=== PATIENT | male | born 1985 | race Hispanic/Latino ===

== ENCOUNTER 2017-07-04 15:03 | Emergency (ER) | payer SELFPAY ==
[2017-07-04] MEDS ORDERED: TETANUS & DIPHTHERIA TOX,ADULT 0.5 ML VIAL ONE (15:36)
[2017-07-04 15:50] LABS: Absolute Lymphocytes (CBC) 2.2 K/uL (0.7-4.9); Absolute Monocytes 0.5 K/uL (0.1-1.3); Absolute Neutrophil 7.4 K/uL (1.8-8.0); Basophils % 0.3 % (0-1.3); Eosinophils % 1.2 % (0-4.4); Hematocrit 49.4 % (39.6-49.0); Lymphocytes % 21.2 % (15.3-44.8); MCH 29.8 pg (27.0-35.0); MCV 88.7 fL (80-100); MPV 8.7 fL (7.6-11.3); Monocytes % 4.9 % (3.3-12.3); RBC Red Blood Cell Count 5.57 M/uL (4.33-5.43)
--- NOTE | 2017-07-04 16:04 | RAD REPORT ---
EXAM DESCRIPTION: CT - Head Brain Wo Cont - 07/04/2017 3:51 pm CLINICAL HISTORY: Seizure COMPARISON: None. TECHNIQUE: All CT scans are performed using dose optimization technique as appropriate and may inclu de automated exposure control or mA/KV adjustment according to patient size. FINDINGS: No intracranial hemorrhage, hydrocephalus or extra-axial fluid collection.No areas of brai n edema or evidence of midline shift. Mild mucoperiosteal thickening affects the right maxillary antrum. The paranasal sinuses and mastoids are otherwise clear. The calvarium is intact. IMPRESSION: No acute intracranial abnormality.
[2017-07-04 16:27] LABS: Barbiturates NEGATIVE; Benzodiazepines NEGATIVE; Cocaine NEGATIVE; METHAMPHETAM NEGATIVE (NEGATIVE); Opiates NEGATIVE; Phencyclidine NEGATIVE; THC Cannibis POSITIVE
[2017-07-04 16:30] LABS: Potassium 4.2 mEq/L (3.6-5.0)
[2017-07-04 16:34] LABS: Albumin 4.4 g/dL (3.2-5.5); Bilirubin Total 0.7 mg/dL (0.3-1.2); Protein, Total 8.1 g/dL (6.0-8.3)
[2017-07-04 16:54] LABS: Urine Blood 2+ (NEG); Urine Glucose NEGATIVE (NEG); Urine Protein 2+ (NEG); Urine Specific Gravity 1.025 (1.005-1.030)
--- NOTE | 2017-07-04 17:30 | ER ---
Nurse's Notes [facility] Name: Rai Easton Age: 32 yrs Sex: Male : 1985 Arrival Date: 07/04/2017 Time: 15:06 Bed 28 Private MD: Diagnosis: Syncope and collapse Presentation: 07/04 15:08 Presenting complaint: EMS states: Pt. arrived by EMS, c/o of seizure. Pt. was [place] parking [place] apartment [place] having a seizure. Per EMS pt. has a pmhx of having a seizure x 6 years ago; however, has not had one since then. Does not take seizure medications. Pt. appeared postictal upon arrival of EMS; however, was A\T\O x 4 upon arrival to ED. Noted abrasion/lac to left side of face. FSBG 128. Transition of care: patient was not received from another setting of care. Onset of symptoms was July 04, 2017. Risk Assessment: Do you want to hurt yourself or someone else? Patient reports no desire to harm self or others. Initial Sepsis Screen: Does the patient meet any 2 criteria? HR > 90 bpm. Does the patient have a suspected source of infection? No. Patient's initial sepsis screen is negative. Care prior to arrival: Placed on backboard. Medication(s) given: IV initiated. 20 GA, in the left antecubital area, Glucose check: 128. 15:08 Method Of Arrival: EMS: [facility] rv 15:08 Acuity: DINH 3 rv Triage Assessment: 15:14 General: Appears in no apparent distress. well developed, well nourished, Behavior is rv calm, cooperative. Pain: Complains of pain in face. EENT: No deficits noted. Neuro: No deficits noted. Level of Consciousness is alert, obeys commands, Oriented to person, place, time, situation. Respiratory: Airway is patent Respiratory effort is even, unlabored, Respiratory pattern is regular, symmetrical. GI: No signs and/or symptoms were reported involving the gastrointestinal system. : No signs and/or symptoms were reported regarding the genitourinary system. Derm: Skin is pink, warm \T\ dry. Injury Description: Abrasion sustained to face Laceration sustained to face. Historical: - Allergies: 15:14 No Known Allergies; rv - Home Meds: 15:14 None [Active]; rv - PMHx: 15:14 Asthma; rv - Immunization history:: Last tetanus immunization: unknown, Pneumococcal vaccine is not up to date, Flu vaccine is not up to date. - Social history:: Smoking status: Patient uses tobacco products, denies chronic smoking, but will smoke occasionally. - Ebola Screening: : Patient negative for fever greater than or equal to 101.5 degrees Fahrenheit, and additional compatible Ebola Virus Disease symptoms. Screenin:19 Abuse screen: Denies threats or abuse. Nutritional screening: No deficits noted. rv Tuberculosis screening: No symptoms or risk factors identified. Fall Risk Fall in past 12 months (25 points). Secondary diagnosis (15 points) seizures, IV access (20 points). Assessment: 16:23 Reassessment: Pt. resting in room \T\ this time... family \T\ bedside. No obvious distress, rk 2 no needs voiced. Vital Signs: 15:01 BP 131 / 82; Pulse 109; Resp 17; Temp 98.1(O); Pulse Ox 96% ; rk2 16:46 BP 132 / 83; Pulse 77; Resp 17; Pulse Ox 96% on R/A; rk2 17:45 BP 127 / 82; Pulse 78; Resp 16; Pulse Ox 98% on R/A; rk2 ED Course: 15:06 Patient arrived in ED. rv 15:08 Arm band placed on. rk2 15:10 Cliff Ballesteros NP is PHCP. pm1 15:10 Travis Ahn MD is Attending Physician. pm1 15:13 Triage completed. rv 15:19 Patient has correct armband on for positive identification. Bed in low position. Call rv light in reach. Side rails up X2. Adult w/ patient. Pulse ox on. 15:20 Lindsey Urena RN is Primary Nurse. rk2 15:44 CT Head Brain wo Cont Sent. rk2 15:51 CT Head Brain wo Cont In Process Unspecified. EDMS 15:51 CT completed. Patient moved to CT via stretcher. Patient moved back from CT. cw1 16:08 Lab(s) recollected, by me, sent to lab. iw 18:09 No provider procedures requiring assistance completed. IV discontinued. 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 Exp: rk2 09/11/2019. Lot #: [id number]. } Route: IM; Site: left deltoid; 17:51 Follow up: Response: No adverse reaction rk2 15:41 Drug: Triple Antibiotic Ointment 1 application Route: Topical; Site: wound; rk2 17:51 Follow up: Response: No adverse reaction rk2 17:50 Drug: hydrOXYzine 25 mg Route: PO; rk2 17:51 Follow up: given \T\ DC rk2 Intake: Outcome: 17:29 Discharge ordered by . pm1 18:09 Condition: improved rk2 18:10 Patient left the ED. rk2 18:19 Discharged to home ambulatory. rk2 18:19 Discharge instructions given to patient, Prescriptions given X 1. Signatures: Dispatcher [employer] EDBrandy Stacy RN Paola Hamilton cw1 Cliff Ballesteros, INSPECTOR RADAR AND ELECTRONICS INSPECTOR RADAR AND ELECTRONICS pm1 Lindsey Urena RN RN rk2 Juliocesar Resendiz RN RN rv Corrections: (The following items were deleted from the chart) 18:19 18:09 Discharged to home via wheelchair, rk2 rk2 18:19 18:09 Discharge instructions given to patient, Prescriptions given X 3, rk2 rk2
--- NOTE | 2017-07-04 17:30 | EDPHYS ---
Physician Documentation [facility] Name: Rai Easton Age: 32 yrs Sex: Male : 1985 Arrival Date: 07/04/2017 Time: 15:06 Bed 28 Private MD: ED Physician Travis Ahn HPI: 07/04 16:00 This 32 yrs old Male presents to ER via EMS with complaints of Seizure. pm1 16:00 The patient presents after having a possible seizure episode. Character of seizure(s): pm1 Loss of consciousness: it is not known if the patient experienced loss of consciousness, Motor activity: the motor activity is unknown, Incontinence: none, Apnea: the patient did not experience apnea, Circulation: the patient did not experience evidence of pulse disturbance, Eye movements: are unknown. Seizure onset: just prior to arrival. Context: the seizure(s) was witnessed, by family, daughter, Not present in ER, occurred outdoors, occurred while the patient was Taking out garbage. Contributing factors: Emotional stress. Seizure Hx: Possible seizure 6 years ago under similar circumstances. Associated injury: Head/face: abrasion. EMS care: backboard. Current symptoms: Currently, the patient is not experiencing any symptoms. The patient has experienced a previous episode, approximately 6 years ago. The patient has not recently seen a physician. Historical: - Allergies: 15:14 No Known Allergies; rv - Home Meds: 15:14 None [Active]; rv - PMHx: 15:14 Asthma; rv - Immunization history:: Last tetanus immunization: unknown, Pneumococcal vaccine is not up to date, Flu vaccine is not up to date. - Social history:: Smoking status: Patient uses tobacco products, denies chronic smoking, but will smoke occasionally. - Ebola Screening: : Patient negative for fever greater than or equal to 101.5 degrees Fahrenheit, and additional compatible Ebola Virus Disease symptoms. ROS: 16:00 Constitutional: Negative for fever, chills, and weight loss, Eyes: Negative for injury, pm1 pain, redness, and discharge, ENT: Negative for injury, pain, and discharge, Neck: Negative for injury, pain, and swelling, Cardiovascular: Negative for chest pain, palpitations, and edema, Respiratory: Negative for shortness of breath, cough, wheezing, and pleuritic chest pain, Abdomen/GI: Negative for abdominal pain, nausea, vomiting, diarrhea, and constipation, Back: Negative for injury and pain, : Negative for injury, bleeding, discharge, and swelling, MS/Extremity: Negative for injury and deformity, Skin: Negative for injury, rash, and discoloration. 16:00 Neuro: Positive for syncope, Negative for dizziness, headache, numbness, tingling, weakness. Exam: 16:00 Constitutional: This is a well developed, well nourished patient who is awake, alert, pm1 and in no acute distress. Eyes: Pupils equal round and reactive to light, extra-ocular motions intact. Lids and lashes normal. Conjunctiva and sclera are non-icteric and not injected. Cornea within normal limits. Periorbital areas with no swelling, redness, or edema. ENT: Nares patent. No nasal discharge, no septal abnormalities noted. Tympanic membranes are normal and external auditory canals are clear. Oropharynx with no redness, swelling, or masses, exudates, or evidence of obstruction, uvula midline. Mucous membranes moist. Neck: Trachea midline, no thyromegaly or masses palpated, and no cervical lymphadenopathy. Supple, full range of motion without nuchal rigidity, or vertebral point tenderness. No Meningismus. Chest/axilla: Normal chest wall appearance and motion. Nontender with no deformity. No lesions are appreciated. Cardiovascular: Regular rate and rhythm with a normal S1 and S2. No gallops, murmurs, or rubs. Normal PMI, no JVD. No pulse deficits. Respiratory: Lungs have equal breath sounds bilaterally, clear to auscultation and percussion. No rales, rhonchi or wheezes noted. No increased work of breathing, no retractions or nasal flaring. Abdomen/GI: Soft, non-tender, with normal bowel sounds. No distension or tympany. No guarding or rebound. No evidence of tenderness throughout. Back: No spinal tenderness. No costovertebral tenderness. Full range of motion. 16:00 Skin: Warm, dry with normal turgor. Normal color with no rashes, no lesions, and no evidence of cellulitis. MS/ Extremity: Pulses equal, no cyanosis. Neurovascular intact. Full, normal range of motion. 16:00 Head/face: Noted is abrasion(s). 16:00 Neuro: Orientation: is normal, Mentation: is normal, Cranial nerves: CN II- XII are normal as tested, Cerebellar function: no acute changes, normal finger to nose testing, Motor: is normal, moves all fours, Sensation: is normal, no obvious gross deficits. Vital Signs: 15:01 BP 131 / 82; Pulse 109; Resp 17; Temp 98.1(O); Pulse Ox 96% ; rk2 16:46 BP 132 / 83; Pulse 77; Resp 17; Pulse Ox 96% on R/A; rk2 17:45 BP 127 / 82; Pulse 78; Resp 16; Pulse Ox 98% on R/A; rk2 MDM: 15:18 Patient medically screened. pm1 17:25 ED course: Patient requested medication for anxiety. Patient has been on BuSpar in the pm1 past for it. 17:28 Data reviewed: vital signs. Data interpreted: Pulse oximetry: on room air is 96 %. pm1 Interpretation: normal. Counseling: I had a detailed discussion with the patient and/or guardian regarding: the historical points, exam findings, and any diagnostic results supporting the discharge/admit diagnosis, lab results, radiology results, the need for outpatient follow up, to return to the emergency department if symptoms worsen or persist or if there are any questions or concerns that arise at home. 17:31 ED course: Patient brought into the emergency department with possible seizure. Patient pm1 reports that he has been under significant stress and having anxiety for the past two weeks. Patient was laid off two weeks ago after working for the same company for the past 3 years. he and his are worried about upcoming bills. Today he was sitting in the shower for two hours feeling stressed out and then he went out to take the garbage out. He was carrying two trash bags and about to fling them in anger. He passed out. Postictal period per EMS is questionable. he had a possible seizure 6 years ago that was evaluated and he was not given any seizure medications. It was precipitated by a stressful situation also. He and his were completely broke at that time and were under financial distress. patient without postictal period on arrival to ER, AAOx4, no incontinence. Impression likely syncopal episode due to emotional stress . 07/04 15:21 Order name: CBC with Diff; Complete Time: 15:51 pm1 07/04 15:21 Order name: Urine Drug Screen; Complete Time: 16:42 pm07/04 15:21 Order name: CT Head Brain wo Cont; Complete Time: 16:07 pm07/04 15:21 Order name: CMP; Complete Time: 16:42 pm07/04 16:50 Order name: Urine Dipstick--Ancillary (enter results) bd 07/04 15:21 Order name: Urine Dipstick-Ancillary (obtain specimen); Complete Time: 15:51 pm07/04 15:21 Order name: IV Saline Lock; Complete Time: 15:21 pm07/04 15:21 Order name: EKG; Complete Time: 15:21 pm07/04 15:21 Order name: EKG - Nurse/Tech; Complete Time: 16:18 pm07/04 15:21 Order name: Wound Care; Complete Time: 15:22 pm07/04 15:53 Order name: Labs - recollect needed; Complete Time: 16:08 iw Administered Medications: 15:40 Drug: Tetanus-Diphtheria Toxoid Adult 0.5 ml {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 Exp: rk2 09/11/2019. Lot #: [id number]. } Route: IM; Site: left deltoid; 17:51 Follow up: Response: No adverse reaction rk2 15:41 Drug: Triple Antibiotic Ointment 1 application Route: Topical; Site: wound; rk2 17:51 Follow up: Response: No adverse reaction rk2 17:50 Drug: hydrOXYzine 25 mg Route: PO; rk2 17:51 Follow up: given \T\ DC rk2 Disposition: 18:45 Co-signature as Attending Physician, Travis Ahn MD I agree with the assessment and kdr plan of care. Disposition: 07/04/17 17:29 Discharged to Home. Impression: Syncope and collapse. - Condition is Stable. - Discharge Instructions: Syncope. - Prescriptions for Hydroxyzine HCl 25 mg Oral Tablet - take 1 tablet by ORAL route every 6 hours As needed; 30 tablet. - Medication Reconciliation Form, Thank You Letter form. - Follow up: Emergency Department; When: As needed; Reason: Worsening of condition. Follow up: Private Physician; When: 2 - 3 days; Reason: Recheck today's complaints, Continuance of care, Re-evaluation by your physician. - Problem is new. - Symptoms have improved. Signatures: Dispatcher [employer] EDMS Travis Ahn MD MD kdr Brandy Shell RN RN iw Cliff Ballesteros, WINNIE THERMOPLASTIC TECHNICIAN pm1 Lindsey Urena RN RN rk2 Juliocesar Resendiz RN RN rv Corrections: (The following items were deleted from the chart) 18:10 17:29 07/04/2017 17:29 Discharged to Home. Impression: Syncope and collapse. Condition rk2 is Stable. Forms are Medication Reconciliation Form, Thank You Letter, Antibiotic Education, Prescription Opioid Use. Follow up: Emergency Department; When: As needed; Reason: Worsening of condition. Follow up: Private Physician; When: 2 - 3 days; Reason: Recheck today's complaints, Continuance of care, Re-evaluation by your physician. Problem is new. Symptoms have improved. pm1
[2017-07-04] MEDS ORDERED: hydrOXYzine HCl 25 MG TAB ONE (17:50)
--- NOTE | 2017-07-05 11:20 | EKG ---
Test Date: 2017-07-04 Test Time: 16:27:12 Export Specialist: TT MEASUREMENT RESULTS: Intervals: Rate: 88 IN: 126 QRSD: 86 QT: 360 QTc: 435 [place]: P: 16 IN: 126 QRS: 13 T: 30 INTERPRETIVE STATEMENTS: Normal sinus rhythm Normal ECG No previous ECG available for comparison Electronically Signed On 07-05-17 11:19:27 CDT by Raffi Mcguire
== END 2017-07-04 18:10 | disposition home or self-care (01) ==
LOC: ER 15:03
DX: R55 Syncope and collapse (principal); Z23 Encounter for immunization; Z72.0 Tobacco use
CPT/HCPCS: 36415; 70450; 80053; 80307; 81003; 85025; 90714; 93005; 99284